=== PATIENT | male | born 1965 | race Hispanic/Latino ===

== ENCOUNTER 2017-08-21 21:17 | Emergency (ER) | payer MEDICAID, OTHER ==
[2017-08-21 21:55] VITALS: BMI 32.5
[2017-08-21 21:57] VITALS: BP 107/74; PULSE 82; RESP 18; TEMP 97.9; O2SAT 96
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
--- NOTE | 2017-08-22 10:16 | RAD ---
PROCEDURE: Left Foot Radiographs. HISTORY: trauma COMPARISON: None. FINDINGS: BONES: Two screws transfix a bimalleolar fracture. No acute fracture or dislocation noted. Inferior calcaneal spurring JOINTS: Hypertrophic tibiotalar arthrosis. Dorsal navicular cuneiform hypertrophic arthrosis. First metatarsal-phalangeal joint and sesamoid hallux arthrosis suggested. SOFT TISSUES: Normal. OTHER FINDINGS: None. IMPRESSION: Status post bimalleolar fixation of prior fractures. No acute fractures. No dislocation Arthrosis
== END 2017-08-21 22:56 | disposition home or self-care (01) ==
LOC: ED 21:17
DX: S92.352A Displaced fracture of fifth metatarsal bone, left foot, initial encounter for closed fracture (principal); W23.1XXA Caught, crushed, jammed, or pinched between stationary objects, initial encounter; Y93.01 Activity, walking, marching and hiking; F17.210 Nicotine dependence, cigarettes, uncomplicated

== ENCOUNTER 2018-01-16 23:10 | Emergency (ER) | payer MEDICAID ==
[2018-01-16 23:17] VITALS: BMI 29.9
[2018-01-16 23:20] VITALS: RESP 18; TEMP 98.8
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
[2018-01-17 01:31] VITALS: BP 118/62; PULSE 84; O2SAT 97
--- NOTE | 2018-01-17 11:16 | RAD ---
PROCEDURE: Bilateral Knee Radiographs. HISTORY: knee pain s/p trauma COMPARISON: None. FINDINGS: BONES: Right Knee: Normal. No fracture. Left Knee: Normal. No fracture. JOINTS: Right Knee: Normal. No osteoarthritis. Left knee: Normal. No osteoarthritis. SOFT TISSUES: Right Knee: Normal. Left Knee: Normal. JOINT EFFUSION: Right Knee: None. Left Knee: None. OTHER FINDINGS: None. IMPRESSION: Normal radiographs of the knees.
--- NOTE | 2018-01-17 11:16 | RAD ---
PROCEDURE: Right Hip and pelvis Radiographs. HISTORY: Right hip pain COMPARISON: 09/19/2016 FINDINGS: BONES: Normal. No fracture. JOINTS: There is joint space narrowing in the right hip superiorly with bony sclerosis. This is unchanged SOFT TISSUES: Normal. OTHER FINDINGS: None. IMPRESSION: There is joint space narrowing in the right hip superiorly with bony sclerosis. This is unchanged
== END 2018-01-17 01:20 | disposition home or self-care (01) ==
LOC: ED 23:10
DX: M25.561 Pain in right knee (principal); M25.562 Pain in left knee; M25.551 Pain in right hip

== ENCOUNTER 2018-07-22 16:49 | Emergency (ER) | payer MEDICAID ==
[2018-07-22 16:50] VITALS: BMI 29.9
[2018-07-22 16:59] VITALS: RESP 18
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
[2018-07-22 23:08] VITALS: BP 143/79; PULSE 82; TEMP 98.9; O2SAT 99
--- NOTE | 2018-07-23 12:25 | RAD ---
Date of service: 07/22/2018 HISTORY: cough r/o infiltrate COMPARISON: 11/02/2016 TECHNIQUE: Chest PA and lateral FINDINGS: LUNGS: No active pulmonary disease. PLEURA: No significant pleural effusion identified. No pneumothorax apparent. CARDIOVASCULAR: Normal. OSSEOUS STRUCTURES: No significant abnormalities. VISUALIZED UPPER ABDOMEN: Normal. OTHER FINDINGS: None. IMPRESSION: No active disease.
== END 2018-07-22 18:31 | disposition home or self-care (01) ==
LOC: ED 16:49
DX: J98.8 Other specified respiratory disorders (principal); F17.210 Nicotine dependence, cigarettes, uncomplicated